=== PATIENT | male | born 1965 | race Caucasian/White ===

== ENCOUNTER → 2016-11-28 | Outpatient (CLI) | payer OTHER ==
[~2016-11-28] MED LIST: ADULT LOW DOSE81 MG PO; GLUCOPHAGE 500500 MG PO; IMDUR ER TAB 3030 MG PO; LEVEMIR100 UNIT/1 SQ; LIPITOR TAB 2020 MG PO; LOPRESSOR 25 MG25 MG PO; NITROSTAT 0.40.4 MG SL; ZESTRIL5 MG PO
[2016-11-28 13:54] LABS: BUN/CREATININE RATIO 28 (0-10)
== END ==
LOC: LAB 13:16
PROVIDERS: Family Medicine
DX: R94.5 Abnormal results of liver function studies (principal); E78.2 Mixed hyperlipidemia; E11.65 Type 2 diabetes mellitus with hyperglycemia
CPT/HCPCS: 36415; 80053; 80061; 80074; 83036

== ENCOUNTER 2016-12-08 11:30 | Emergency (ER) | payer OTHER | END 2016-12-08 12:50 | disposition home or self-care (01) | LOC: ER1 11:30 | DX: S01.01XA Laceration without foreign body of scalp, initial encounter (principal); I10 Essential (primary) hypertension; I25.810 Atherosclerosis of coronary artery bypass graft(s) without angina pectoris; E10.9 Type 1 diabetes mellitus without complications; F17.210 Nicotine dependence, cigarettes, uncomplicated; W20.8XXA Other cause of strike by thrown, projected or falling object, initial encounter; Y92.009 Unspecified place in unspecified non-institutional (private) residence as the place of occurrence of the external cause; Z23 Encounter for immunization; Z88.5 Allergy status to narcotic agent; Z79.899 Other long term (current) drug therapy | CPT/HCPCS: 12001; 70450; 90471; 90715; 99283 ==

== ENCOUNTER 2016-12-19 14:49 | Emergency (ER) | payer OTHER | END 2016-12-19 15:34 | disposition home or self-care (01) | LOC: ER1 14:49 | DX: Z48.02 Encounter for removal of sutures (principal); F17.210 Nicotine dependence, cigarettes, uncomplicated | CPT/HCPCS: 99281 ==

== ENCOUNTER → 2016-12-19 | Outpatient (CLI) | payer OTHER | LOC: LAB 15:39 | DX: B19.20 Unspecified viral hepatitis C without hepatic coma (principal); R76.8 Other specified abnormal immunological findings in serum | CPT/HCPCS: 36415; 86705; 86706; 86707; 87340 ==

== ENCOUNTER 2021-04-02 17:00 | Emergency (ER) | payer OTHER ==
[~2021-04-02 17:00] MED LIST changes: +ADMELOG SO100 UNIT/1 SQ; +ASPIRIN CHEWABL81 MG PO; +BASAGLAR K100 UNIT/1 SC; +ISOSORBIDE MONO30 MG PO; +VENTOLIN HFA 66.7 GM INH
== END 2021-04-02 18:10 | disposition home or self-care (01) ==
LOC: ER1 17:00
DX: R10.84 Generalized abdominal pain (principal); E11.9 Type 2 diabetes mellitus without complications; I10 Essential (primary) hypertension; Z95.1 Presence of aortocoronary bypass graft
CPT/HCPCS: 99283

== ENCOUNTER 2021-04-07 01:40 | Emergency (ER) | payer OTHER ==
[2021-04-07 02:35] LABS: HEMOGLOBIN 11.9 gm/dl (14.0-17.5); RED BLOOD COUNT 3.93 M/UL (4.20-5.50); WHITE BLOOD COUNT 4.2 K/UL (4.5-11.0)
[2021-04-07 02:56] LABS: BUN/CREATININE RATIO 11 (0-10)
== END 2021-04-07 06:58 | disposition home or self-care (01) ==
LOC: ER1 01:40
PROVIDERS: Physician Assistant
DX: K74.60 Unspecified cirrhosis of liver (principal); R18.8 Other ascites; I25.10 Atherosclerotic heart disease of native coronary artery without angina pectoris; E11.9 Type 2 diabetes mellitus without complications; E78.5 Hyperlipidemia, unspecified; I10 Essential (primary) hypertension; I25.2 Old myocardial infarction; F17.210 Nicotine dependence, cigarettes, uncomplicated; Z20.822 Contact with and (suspected) exposure to COVID-19
CPT/HCPCS: 71045; 80053; 81001; 82550; 82553; 83605; 83690; 83874; 84484; 85025; 87086; 93005; 96374; 96375; 99285; J1885; J2270; J2405; J7030; Q9967; U0002

== ENCOUNTER → 2021-09-30 | Outpatient (CLI) | payer OTHER | LOC: HEART 5 08:15 | DX: R07.9 Chest pain, unspecified (principal); Z95.1 Presence of aortocoronary bypass graft; I25.2 Old myocardial infarction; I51.7 Cardiomegaly | CPT/HCPCS: 78452; A9502; J2785 ==

== ENCOUNTER → 2021-11-24 | Outpatient (CLI) | payer OTHER | LOC: HEART 5 08:30 | DX: I50.22 Chronic systolic (congestive) heart failure (principal); I25.5 Ischemic cardiomyopathy; I42.0 Dilated cardiomyopathy; I08.1 Rheumatic disorders of both mitral and tricuspid valves | CPT/HCPCS: 93306 ==

== ENCOUNTER 2022-03-01 10:23 | Emergency (ER) | payer OTHER ==
[2022-03-02] MEDS ORDERED: FUROSEMIDE40 MG PO (19:50)
[2022-03-02] MEDS ORDERED: POTASSIUM CHLO20 ME1 PO (19:51)
== END 2022-03-01 14:14 | disposition left against medical advice (07) ==
LOC: ER1 10:23
DX: Z53.21 Procedure and treatment not carried out due to patient leaving prior to being seen by health care provider (principal)

== ENCOUNTER 2022-03-02 15:46 | Emergency (ER) | payer OTHER ==
[2022-03-02 16:24] LABS: HEMOGLOBIN 11.1 gm/dl (14.0-17.5); RED BLOOD COUNT 3.99 M/UL (4.20-5.50); WHITE BLOOD COUNT 4.3 K/UL (4.5-11.0)
[2022-03-02 16:56] LABS: BUN/CREATININE RATIO 18 (0-10)
[2022-03-02] MEDS ORDERED: FUROSEMIDE40 MG PO (19:50)
[2022-03-02] MEDS ORDERED: POTASSIUM CHLO20 ME1 PO (19:51)
== END 2022-03-02 19:57 | disposition home or self-care (01) ==
LOC: ER1 15:46
DX: R60.0 Localized edema (principal); R63.5 Abnormal weight gain; E11.65 Type 2 diabetes mellitus with hyperglycemia; I11.0 Hypertensive heart disease with heart failure; I50.9 Heart failure, unspecified; F17.200 Nicotine dependence, unspecified, uncomplicated; Z90.49 Acquired absence of other specified parts of digestive tract
CPT/HCPCS: 71045; 80053; 82550; 82553; 83880; 84484; 85025; 93005; 99284

== ENCOUNTER 2022-03-25 00:34 | Emergency (ER) | payer OTHER ==
[~2022-03-25 00:34] MED LIST changes: +FUROSEMIDE40 MG PO; +POTASSIUM CHLO20 ME1 PO
[2022-03-25 01:09] LABS: HEMOGLOBIN 13.6 gm/dl (14.0-17.5); RED BLOOD COUNT 4.73 M/UL (4.20-5.50); WHITE BLOOD COUNT 5.1 K/UL (4.5-11.0)
[2022-03-25 01:43] LABS: BUN/CREATININE RATIO 23 (0-10)
== END 2022-03-25 02:29 ==
LOC: ER1 00:34
PROVIDERS: Family Medicine
DX: S06.309A Unspecified focal traumatic brain injury with loss of consciousness of unspecified duration, initial encounter (principal); G83.9 Paralytic syndrome, unspecified; G81.94 Hemiplegia, unspecified affecting left nondominant side; R29.810 Facial weakness; H54.7 Unspecified visual loss; E11.65 Type 2 diabetes mellitus with hyperglycemia; S01.01XA Laceration without foreign body of scalp, initial encounter; I50.20 Unspecified systolic (congestive) heart failure; F17.200 Nicotine dependence, unspecified, uncomplicated; Z95.1 Presence of aortocoronary bypass graft; Z79.4 Long term (current) use of insulin; Z79.899 Other long term (current) drug therapy
CPT/HCPCS: 70450; 70496; 70498; 80053; 80307; 81001; 82009; 82550; 82553; 82803; 83605; 83735; 84439; 84443; 84484; 85025; 93005; 99285; G0480; J2405; J2997; Q9967